=== PATIENT | male | born 1980 | race African-American/Black ===

== ENCOUNTER 2017-11-03 23:17 | Emergency (ER) | payer OTHER, MEDICAID ==
[~2017-11-03] VITALS: Ht 175.3 cm; Wt 181.4 kg
[2017-11-03 23:26] VITALS: BP 159/98
[2017-11-04 00:11] LABS: Basophils # (auto) 0.1 uL; Basophils % (auto) 0.9 % (0.0-2.0); Eosinophils # (auto) 0.2 uL; Eosinophils % (auto) 2.7 % (0.0-7.0); Hematocrit 42.4 % (41.0-53.0); Hemoglobin 13.9 g/dL (13.5-17.5); Lymphocytes # (auto) 2.8 uL; Mean Corpuscular Hemoglobin 30.3 pg (28.0-32.0); Mean Corpuscular Hgb Conc. 32.9 g/dL (32.0-36.0); Mean Corpuscular Volume 92.2 fL (80.0-100.0); Monocytes % (auto) 11.1 % (0.0-12.0); Neutrophils # (auto) 4.7 uL; Neutrophils % (auto) 53.3 % (37.0-80.0); Nucleated Red Blood Cells % 0.1 %; Platelet Count (auto) 228 10^3/uL (140-450); Red Blood Cells 4.59 10^6/uL (4.5-5.90); Red Cell Distribution Width 14.3 % (11.8-14.3); White Blood Cell 8.8 10^3/uL (4.4-10.8)
[2017-11-04 00:26] LABS: Alanine Aminotransferase 25 U/L (16-61); Albumin 3.1 g/dL (3.4-5.0); Anion Gap 5 (5-15); Aspartate Aminotransferase 13 U/L (15-37); BUN/Creatinine Ratio 10.6; Blood Urea Nitrogen 10 mg/dL (7-18); Calcium 8.3 mg/dL (8.5-10.1); Carbon Dioxide 29 mmol/L (21-32); Chloride 105 mmol/L (98-107); GFR African American 115 mL/min; GFR Non-African American 95 mL/min; Glucose 138 mg/dL (74-106); Potassium 4.1 mmol/L (3.5-5.1); Sodium 139 mmol/L (136-145)
[2017-11-04 00:29] LABS: Partial Thromboplastin Time 31.4 sec (22.64-33.71); Prothrombin Time 10.9 sec (9.37-12.3)
[2017-11-04 00:31] LABS: Alkaline Phosphatase 103 U/L (45-117); Bilirubin, Total 0.3 mg/dL (0.2-1.0); Total Protein 8.2 g/dL (6.4-8.2)
== END 2017-11-04 03:00 | disposition left against medical advice (07) ==
LOC: ER 23:19
DX: R00.2 Palpitations (principal); Z53.21 Procedure and treatment not carried out due to patient leaving prior to being seen by health care provider
CPT/HCPCS: 36415; 71046; 80053; 83880; 84484; 85025; 85610; 85730; 93005

== ENCOUNTER 2018-08-08 11:10 | Emergency (ER) | payer OTHER, MEDICAID ==
[~2018-08-08] VITALS: Ht 175.3 cm; Wt 181.4 kg
[2018-08-08] MEDS ORDERED: KETOROLAC TROMETH 60MG/2ML VIAL IM ONE (12:15)
[2018-08-08 12:50] VITALS: BP 158/94
== END 2018-08-08 13:53 | disposition home or self-care (01) ==
LOC: ER 11:10
DX: S76.911A Strain of unspecified muscles, fascia and tendons at thigh level, right thigh, initial encounter (principal); E78.5 Hyperlipidemia, unspecified; E66.01 Morbid (severe) obesity due to excess calories; Z68.43 Body mass index [BMI] 50.0-59.9, adult; W55.03XA Scratched by cat, initial encounter; Y93.89 Activity, other specified; Y92.89 Other specified places as the place of occurrence of the external cause; Y99.8 Other external cause status
CPT/HCPCS: 73502; 96372; 99283; J1885

== ENCOUNTER 2018-10-24 04:49 | Emergency (ER) | payer OTHER, MEDICAID ==
[~2018-10-24] VITALS: Ht 175.3 cm; Wt 181.4 kg
[2018-10-24] MEDS ORDERED: HYDROcodone-ACET 10/325MG TAB PO ONE (08:00)
[2018-10-24 09:00] LABS: Basophils # (auto) 0 uL; Basophils % (auto) 0.4 % (0.0-2.0); Eosinophils # (auto) 0.1 uL; Eosinophils % (auto) 0.6 % (0.0-7.0); Hemoglobin 14.6 g/dL (13.5-17.5); Lymphocytes # (auto) 2.5 uL; Lymphocytes % (auto) 26.5 % (10.0-50.0); Mean Corpuscular Hemoglobin 30.4 pg (28.0-32.0); Mean Corpuscular Hgb Conc. 33.1 g/dL (32.0-36.0); Mean Corpuscular Volume 91.6 fL (80.0-100.0); Monocytes # (auto) 0.8 uL; Neutrophils % (auto) 64.5 % (37.0-80.0); Nucleated Red Blood Cells % 0.1 %; Platelet Count (auto) 226 10^3/uL (140-450); Red Cell Distribution Width 14.3 % (11.8-14.3); White Blood Cell 9.4 10^3/uL (4.4-10.8)
[2018-10-24 09:16] LABS: Alanine Aminotransferase 28 U/L (16-61); Albumin 3.6 g/dL (3.4-5.0); Anion Gap 6 (5-15); Aspartate Aminotransferase 13 U/L (15-37); Blood Urea Nitrogen 12 mg/dL (7-18); Calcium 9.2 mg/dL (8.5-10.1); Carbon Dioxide 27 mmol/L (21-32); Chloride 103 mmol/L (98-107); GFR African American 118 mL/min; GFR Non-African American 97 mL/min; Glucose 113 mg/dL (74-106); Potassium 4.2 mmol/L (3.5-5.1); Sodium 136 mmol/L (136-145)
[2018-10-24 09:20] LABS: Alkaline Phosphatase 109 U/L (45-117); Bilirubin, Total 0.2 mg/dL (0.2-1.0); Total Protein 9.1 g/dL (6.4-8.2)
[2018-10-24 09:52] VITALS: BP 153/91
== END 2018-10-24 13:13 | disposition home or self-care (01) ==
LOC: ER 04:49
DX: R07.89 Other chest pain (principal); E66.01 Morbid (severe) obesity due to excess calories; E78.5 Hyperlipidemia, unspecified; Z68.43 Body mass index [BMI] 50.0-59.9, adult
CPT/HCPCS: 36415; 71045; 80053; 83880; 84484; 85025; 85379; 93005; 99284; J7030

== ENCOUNTER 2018-11-04 00:06 | Emergency (ER) | payer OTHER, MEDICAID ==
[~2018-11-04] VITALS: Ht 175.3 cm; Wt 181.4 kg
[2018-11-04 00:25] VITALS: BP 139/90
== END 2018-11-04 04:56 | disposition home or self-care (01) ==
LOC: ER 00:10
DX: J06.9 Acute upper respiratory infection, unspecified (principal); R42 Dizziness and giddiness; E78.5 Hyperlipidemia, unspecified
CPT/HCPCS: 71045

== ENCOUNTER 2019-06-14 15:39 | Emergency (ER) | payer OTHER, MEDICAID ==
[~2019-06-14] VITALS: Ht 175.3 cm; Wt 193.7 kg
[2019-06-14 15:51] VITALS: BP 164/62
[2019-06-14] MEDS ORDERED: KETOROLAC TROMETH 60MG/2ML VIAL IM ONE (20:30)
== END 2019-06-14 20:55 | disposition home or self-care (01) ==
LOC: ER 15:39
DX: G56.23 Lesion of ulnar nerve, bilateral upper limbs (principal); E78.00 Pure hypercholesterolemia, unspecified; I10 Essential (primary) hypertension; E11.9 Type 2 diabetes mellitus without complications
CPT/HCPCS: 96372; 99283; J1885

== ENCOUNTER 2020-05-20 06:50 | Emergency (ER) | payer MEDICAID ==
[~2020-05-20] VITALS: Ht 175.3 cm; Wt 190.5 kg
[2020-05-20] MEDS ORDERED: KETOROLAC TROMETH 60MG/2ML VIAL IM ONE (07:45)
[2020-05-20 07:52] VITALS: BP 157/91
== END 2020-05-20 08:45 | disposition home or self-care (01) ==
LOC: ER 06:50
DX: M54.42 Lumbago with sciatica, left side (principal); M54.16 Radiculopathy, lumbar region; E66.01 Morbid (severe) obesity due to excess calories; G89.29 Other chronic pain; E11.9 Type 2 diabetes mellitus without complications; E78.5 Hyperlipidemia, unspecified; I10 Essential (primary) hypertension
CPT/HCPCS: 72100; 96372; 99283; J1885

== ENCOUNTER 2020-08-21 10:00 | Emergency (ER) | payer MEDICAID ==
[~2020-08-21] VITALS: Ht 175.3 cm; Wt 190.5 kg
[2020-08-21 13:23] LABS: Basophils # (auto) 0.1 10 ^3/uL (0-0.2); Basophils % (auto) 1.3 % (0.0-2.0); Eosinophils # (auto) 0.1 10 ^3/uL (0-0.8); Hematocrit 43.6 % (41.0-53.0); Hemoglobin 14.7 g/dL (13.5-17.5); Lymphocytes # (auto) 3.7 10 ^3/uL (0.4-5.4); Lymphocytes % (auto) 44.8 % (10.0-50.0); Mean Corpuscular Hemoglobin 30.2 pg (28.0-32.0); Mean Corpuscular Hgb Conc. 33.8 g/dL (32.0-36.0); Mean Corpuscular Volume 89.3 fL (80.0-100.0); Monocytes % (auto) 11.8 % (0.0-12.0); Neutrophils # (auto) 3.4 10 ^3/uL (1.6-8.6); Neutrophils % (auto) 41.1 % (37.0-80.0); Nucleated Red Blood Cells % 0.1 %; Platelet Count (auto) 208 10^3/uL (140-450); Red Blood Cells 4.88 10^6/uL (4.5-5.90); Red Cell Distribution Width 14.3 % (11.8-14.3); White Blood Cell 8.2 10^3/uL (4.4-10.8)
[2020-08-21 14:11] LABS: Sodium 135 mmol/L (136-145)
[2020-08-21 14:12] LABS: Alanine Aminotransferase 80 U/L (16-61); Alkaline Phosphatase 83 U/L (45-117); Anion Gap 3 (5-15); Aspartate Aminotransferase 61 U/L (15-37); BUN/Creatinine Ratio 12.9; Bilirubin, Total 0.4 mg/dL (0.2-1.0); Blood Urea Nitrogen 11 mg/dL (7-18); Calcium 9.2 mg/dL (8.5-10.1); Carbon Dioxide 25 mmol/L (21-32); Chloride 107 mmol/L (98-107); GFR African American 128 mL/min; GFR Non-African American 106 mL/min; Glucose 112 mg/dL (74-106); Total Protein 8.9 g/dL (6.4-8.2)
[2020-08-21 14:13] LABS: Albumin 3.2 g/dL (3.4-5.0)
[2020-08-21 16:40] VITALS: BP 148/80
== END 2020-08-21 16:41 | disposition home or self-care (01) ==
LOC: ER 10:00
DX: J06.9 Acute upper respiratory infection, unspecified (principal); R09.89 Other specified symptoms and signs involving the circulatory and respiratory systems; Z20.828 Contact with and (suspected) exposure to other viral communicable diseases
CPT/HCPCS: 36415; 71045; 80053; 83880; 84484; 85025; 87426; 93005; 99285; C9803; U0003

== ENCOUNTER 2020-11-06 09:12 | Emergency (ER) | payer MEDICAID ==
[~2020-11-06] VITALS: Ht 175.3 cm; Wt 190.5 kg
[2020-11-06 09:15] VITALS: BP 157/81
== END 2020-11-06 09:50 | disposition home or self-care (01) ==
LOC: ER 09:12
DX: R43.9 Unspecified disturbances of smell and taste (principal); B37.9 Candidiasis, unspecified; E11.9 Type 2 diabetes mellitus without complications; E78.5 Hyperlipidemia, unspecified; I10 Essential (primary) hypertension